=== PATIENT | male | born 1965 | race African-American/Black ===

== ENCOUNTER 2019-09-27 19:48 | Emergency (ER) | payer OTHER ==
[~2019-09-27] VITALS: Ht 177.8 cm; Wt 111.1 kg
--- NOTE | 2019-09-27 21:26 | Diagnostic Imaging Report ---
EXAMINATION: Head CT without contrast. HISTORY:Trauma, fall. COMPARISON:None. TECHNIQUE: Multidetector axial images were obtained from the foramen magnum to the vertex without contrast. The images were reconstructed using brain and bone algorithms. Thin section brain images were reformatted into coronal and sagittal planes. Dose modulation, iterative reconstruction, and/or weight based adjustment of the mA/kV was utilized to reduce the radiation dose to as low as reasonably achievable. Intravenous contrast: None IMAGE QUALITY: Acceptable. FINDINGS: Skull/scalp: Mild left frontal scalp and supraorbital soft tissues edema/hematoma. No soft tissue emphysema or radiopaque foreign body. No acute depressed or displaced calvarial fracture. Parenchyma: Questionable, subtle cortical-based hyperdensity in the anterior aspect of left inferior frontal gyrus (image 8, series 2) may the represent focal cortical contusion or an artifact. No surrounding edema or mass effect. No mass or acute major vascular territorial infarct. Arteries: No density suggestive of thrombosis. Dural sinuses: No abnormal density suggestive of thrombosis. Ventricles: No hydrocephalus or displacement. Extra-axial spaces: No abnormal density. Brain volume: Normal for age. Craniocervical junction: No mass, Chiari malformation, or basilar invagination. Sella: No mass. Paranasal/mastoid sinuses: Near complete opacification of hypoplastic left sphenoid sinus with thickened and sclerotic sinus wall may represent chronic inflammatory process. Mild mucosal thickening in left ethmoid sinus. IMPRESSION: 1. Mild left frontal scalp and supraorbital soft tissue edema/hematoma. No acute fracture. 2. Questionable focal cortical contusion vs artifact in anterior aspect of left inferior frontal gyrus. Signed by: Dr. Abbey Huerta M.D. on 09/27/2019 9:23 PM
--- NOTE | 2019-09-27 21:33 | Diagnostic Imaging Report ---
History:Trauma, fall. Comparison studies: None Technique: Axial images were obtained through the maxillofacial region. Coronal and sagittal images reconstructed from the axial data. Dose modulation, iterative reconstruction, and/or weight based adjustment of the mA/kV was utilized to reduce the radiation dose to as low as reasonably achievable. Intravenous contrast: None Findings: Soft tissues: Moderate left periorbital soft tissue edema/hematoma. No soft tissue emphysema or radiopaque foreign body. Bones: No fractures or bony abnormalities. Orbits: Globes: Intact. No retrobulbar hemorrhage. Extra or intraconal abnormalities: None. Paranasal sinuses: Moderate mucosal thickening in hypoplastic left sphenoid sinus with thickened and sclerotic sinus wall represents chronic inflammation process. Mild mucosal thickening in bilateral maxillary and left ethmoid sinuses. Incidental finding: C5-C6: Mild right foraminal stenosis due to uncovertebral arthrosis. IMPRESSION: 1. Moderate left periorbital soft tissue edema/hematoma. 2. No acute fracture. Signed by: Dr. Abbey Huerta M.D. on 09/27/2019 9:30 PM
[2019-09-27 21:47] VITALS: BP 148/75
== END 2019-09-27 22:00 | disposition home or self-care (01) ==
LOC: FSED 19:48
DX: S00.83XA Contusion of other part of head, initial encounter (principal); S00.11XA Contusion of right eyelid and periocular area, initial encounter; W18.30XA Fall on same level, unspecified, initial encounter; Y92.008 Other place in unspecified non-institutional (private) residence as the place of occurrence of the external cause; I10 Essential (primary) hypertension; E11.9 Type 2 diabetes mellitus without complications; J98.4 Other disorders of lung; F17.210 Nicotine dependence, cigarettes, uncomplicated
CPT/HCPCS: 70450; 70486; 99283